=== PATIENT | male | born 1995 | race African-American/Black ===

== ENCOUNTER 2019-11-16 15:10 | Emergency (ER) | payer MEDICAID ==
[~2019-11-16] VITALS: Ht 177.8 cm; Wt 95.5 kg
[2019-11-16 18:45] VITALS: BP 134/63
== END 2019-11-16 18:42 | disposition home or self-care (01) ==
LOC: EMS 15:12
DX: S63.91XA Sprain of unspecified part of right wrist and hand, initial encounter (principal); J45.909 Unspecified asthma, uncomplicated; F17.210 Nicotine dependence, cigarettes, uncomplicated; W22.01XA Walked into wall, initial encounter; Y93.89 Activity, other specified; Y92.89 Other specified places as the place of occurrence of the external cause; Y99.8 Other external cause status